=== PATIENT | female | born 1985 | race Caucasian/White ===

== ENCOUNTER 2017-11-08 14:17 | Inpatient (IN) | payer OTHER ==
[2017-11-08 15:38] LABS: Hematocrit 34 % (35-47); Mean Corpuscular HGB Conc 32 g/dl (31-36); Mean Corpuscular Hemoglobin 27 pg (27-31); Mean Corpuscular Volume 83 fL (80-97); Mean Platelet Volume 8 um3 (7.4-10.4); Platelet Count 284 10^3/ul (150-450); Red Blood Count 4.12 10^6/ul (4.0-5.4); Red Cell Distribution Width 15 % (10.5-15); White Blood Count 17.2 10^3/ul (3.5-10.8)
[2017-11-08 15:43] LABS: Urine Appearance Clear; Urine Blood Negative (Negative); Urine Color Straw; Urine Ketones Negative (Negative); Urine Protein Negative (Negative); Urine Specific Gravity 1.004 (1.010-1.030); Urine Urobilinogen Negative (Negative)
[2017-11-08 15:46] LABS: ABS Basophils 0 10^3/ul (0-0.2); ABS Eosinophils 0.1 10^3/ul (0-0.6); ABS Lymphocytes 2.8 10^3/ul (1.0-4.8); ABS Monocytes 1.1 10^3/ul (0-0.8); ABS Neutrophils 13.2 10^3/ul (1.5-7.7); ABS Nucleated RBC 0 10^3/ul; Eosinophil % 0.6 % (0-6); Lymphocyte % 16.3 % (25-47); Nucleated Red Blood Cells % 0.1
[2017-11-08 15:51] LABS: INR 0.88 (0.77-1.02)
[2017-11-08 15:56] LABS: EGFR Non-African American 110.2 (>60)
[2017-11-08 16:16] LABS: Platelet Count 284 10^3/ul (150-450)
[2017-11-08 16:32] LABS: Schistocytes ABSENT
[2017-11-08] MEDS ORDERED: Oxytocin in LR* 20 UNITS/1,000 ML BAG IVPB SCH (17:00)
--- NOTE | 2017-11-08 17:16 | RAD ---
Indication: No heart rate noted. Real-time sonography of the fetus was performed. There is a single intrauterine gestation in cephalic presentation. heart activity is not identified. There is no evidence of amniotic fluid noted. IMPRESSION: Findings consistent with demise. No amniotic fluid is noted.
[2017-11-09] MEDS ORDERED: Nalbuphine* 20 MG/ML 1 ML VIAL IV PRN (04:16)
[2017-11-09] MEDS ORDERED: Promethazine INJ(RESTRICTED)* 25 MG/ML 1 ML VIAL IV ONE (04:16)
[2017-11-09] MEDS ORDERED: Promethazine INJ(RESTRICTED)* 25 MG/ML 1 ML VIAL ONE (04:16)
[2017-11-09] MEDS ORDERED: Nalbuphine* 20 MG/ML 1 ML VIAL ONE (04:16)
[2017-11-09] MEDS ORDERED: Acetaminophen TAB* 325 MG PO PRN (05:28)
[2017-11-09] MEDS ORDERED: Witch Hazel PAD* JAR TOPICAL PRN (05:28)
[2017-11-09] MEDS ORDERED: Glycerin ADULT SUPP PR PRN (05:28)
[2017-11-09] MEDS ORDERED: Dibucaine 1% 28.35 GM TUBE PR PRN (05:28)
[2017-11-09] MEDS ORDERED: Ibuprofen TAB* 600 MG PO PRN (05:28)
[2017-11-09] MEDS ORDERED: Oxytocin in LR* 20 UNITS/1,000 ML BAG IVPB SCH (06:00)
[2017-11-09] MEDS: Simethicone TAB* 80 MG TAB.CHEW PO SCH ×3 (18:21→21:57)
[2017-11-09] MEDS: Docusate CAP* 100 MG PO SCH ×2 (18:21→21:18)
[2017-11-10 08:03] LABS: Hematocrit 34 % (35-47); Hemoglobin 11.2 g/dl (12.0-16.0); Mean Corpuscular HGB Conc 33 g/dl (31-36); Mean Corpuscular Hemoglobin 27 pg (27-31); Mean Corpuscular Volume 83 fL (80-97); Mean Platelet Volume 8 um3 (7.4-10.4); Platelet Count 307 10^3/ul (150-450); Red Blood Count 4.09 10^6/ul (4.0-5.4); Red Cell Distribution Width 15 % (10.5-15); White Blood Count 18.7 10^3/ul (3.5-10.8)
[2017-11-10] MEDS ORDERED: Ferrous Gluconate TAB* 324 MG TAB PO SCH (09:00)
[2017-11-10 09:16] LABS: ABS Basophils 0.1 10^3/ul (0-0.2); ABS Eosinophils 0.2 10^3/ul (0-0.6); ABS Lymphocytes 3.6 10^3/ul (1.0-4.8); ABS Monocytes 1.1 10^3/ul (0-0.8); ABS Neutrophils 13.6 10^3/ul (1.5-7.7); ABS Nucleated RBC 0 10^3/ul; Eosinophil % 1.3 % (0-6); Lymphocyte % 19.2 % (25-47); Nucleated Red Blood Cells % 0
[2017-11-10] MEDS: Docusate CAP* 100 MG PO SCH (09:16)
[2017-11-10] MEDS: Simethicone TAB* 80 MG TAB.CHEW PO SCH (09:17)
[2017-11-10 10:08] VITALS: BP 141/91
== END 2017-11-10 13:51 | disposition home or self-care (01) | DRG 560 ==
LOC: MCHOBOUT 14:17 → MCHOB 16:10
PROVIDERS: ADMIT Midwife; ATTEND Midwife
PROC: 10E0XZZ Delivery of Products of Conception, External Approach (ICD-10-PCS; principal; 2017-11-09)
PROC: 3E033VJ Introduction of Other Hormone into Peripheral Vein, Percutaneous Approach (ICD-10-PCS; 2017-11-09)
DX: O36.4XX0 Maternal care for intrauterine death, not applicable or unspecified (principal); Z37.1 Single stillbirth; O69.1XX0 Labor and delivery complicated by cord around neck, with compression, not applicable or unspecified; O70.0 First degree perineal laceration during delivery; Z3A.38 38 weeks gestation of pregnancy
CPT/HCPCS: 36415; 76815; 80053; 80307; 81003; 81015; 83030; 84550; 85025; 85049; 85362; 85384; 85610; 85613; 85730; 86038; 86200; 86644; 86695; 86696; 86747; 86762; 86777; 86850; 86900; 86901; 87070; 87086; 88307; A9270-GY; J2300; J2550

== ENCOUNTER 2019-02-27 08:02 | Emergency (ER) | payer OTHER ==
[2019-02-27 08:31] VITALS: BP 128/82
--- NOTE | 2019-02-27 08:46 | UC ---
Eye Complaint HPI - HPI Summary HPI Summary: 33-year-old female comes in with a chief complaint of bilateral eye irritation and discharge. 4 days ago it started and had some crusting first in one eye and then the other. Now both eyes her having crusting primarily in the morning and is also some discharge. No upper respiratory tract infection symptoms. Her daughter has the same symptoms and they were together when all of this started. No fevers no chills. Washing the eyes improves his symptoms. No C/O FB. No contacts. - History of Current Complaint Chief Complaint: UCEye Stated Complaint: EYE COMPLAINT Time Seen by Provider: 02/27/19 08:16 Hx Last Menstrual Period: 02/12/19 Pain Intensity: 0 - Allergies/Home Medications Allergies/Adverse Reactions: Allergies Allergy/AdvReac Type Severity Reaction Status Date / Time MS No Known Drug Allergy Allergy See Comment Verified 11/08/17 16:39 [No Known Drug Allergy] [email or web address] Allergy Swelling Uncoded 11/08/17 15:44 Of Face,Lips,& Throat Home Medications: Home Medications Multivit with Iron,Minerals [Super Multiple] 1 tab PO Q6HR MDD 1 02/27/19 [ History Confirmed 02/27/19] PMH/Surg Hx/FS Hx/Imm Hx Previously Healthy: Yes - Surgical History Surgical History: None - Family History Known Family History: Positive: Non-Contributory - Social History Alcohol Use: Occasionally Substance Use Type: None Smoking Status (MU): Former Smoker - Immunization History Most Recent Influenza Vaccination: none Most Recent Tetanus Shot: none Most Recent Pneumonia Vaccination: n/a Review of Systems All Other Systems Reviewed And Are Negative: Yes Constitutional: Positive: Negative Skin: Positive: Negative Eyes: Positive: Drainage, Eye Redness ENT: Positive: Negative Respiratory: Positive: Negative Cardiovascular: Positive: Negative Gastrointestinal: Positive: Negative Motor: Positive: Negative Neurovascular: Positive: Negative Musculoskeletal: Positive: Negative Neurological: Positive: Negative Psychological: Positive: Negative Is Patient Immunocompromised?: No Physical Exam Triage Information Reviewed: Yes Appearance: Well-Appearing, No Pain Distress, Well-Nourished Vital Signs: Initial Vital Signs Temp 98.7 F 02/27/19 08:26 Pulse 76 02/27/19 08:26 Resp 16 02/27/19 08:26 BP 128/82 02/27/19 08:26 Pulse Ox 99 02/27/19 08:26 Vital Signs Reviewed: Yes Eyes: Positive: Conjunctiva Inflamed, Discharge, Other: - PERRLA/EOMI, NO PHOTOPHOBIA ENT: Positive: Pharynx normal. Negative: Nasal congestion Neck: Positive: Supple Respiratory: Positive: Lungs clear, Normal breath sounds, No respiratory distress Cardiovascular: Positive: RRR Musculoskeletal Exam: Normal Musculoskeletal: Positive: Strength Intact, ROM Intact Neurological Exam: Normal Neurological: Positive: Alert, Muscle Tone Normal Psychological Exam: Normal Psychological: Positive: Normal Response To Family, Age Appropriate Behavior Skin Exam: Normal Eye Complaint Course/Dx - Differential Dx/Diagnosis Provider Diagnosis: Conjunctivitis Discharge - Sign-Out/Discharge Documenting (check all that apply): Patient Departure All imaging exams completed and their final reports reviewed: No Studies - Discharge Plan Condition: Stable Disposition: HOME Prescriptions: Tobramycin 0.3% OPHTH.BUCKY* 1 drop BOTH EYES Q4H #1 btl Patient Education Materials: Conjunctivitis (ED) Referrals: [facility] [Outside] [facility] [Provider Group] Additional Instructions: FOLLOW UP WITH OPHTHALMOLOGY IF NOT COMPLETELY IMPROVED. GET REEVALUATED SOONER IF YOUR CONDITION WORSENS OR ANY QUESTIONS OR CONCERNS. - Billing Disposition and Condition Condition: STABLE Disposition: Home
== END 2019-02-27 08:58 | disposition home or self-care (01) ==
LOC: UCEAST 08:02
DX: H10.33 Unspecified acute conjunctivitis, bilateral (principal); Z87.891 Personal history of nicotine dependence
CPT/HCPCS: 99212; G0463